=== PATIENT | male | born 1995 | race Caucasian/White ===

== ENCOUNTER 2017-02-06 16:10 | Emergency (ER) | payer BC ==
[2017-02-06] MEDS ORDERED: Ibuprofen TAB* 600 MG PO ONE (17:58)
--- NOTE | 2017-02-06 18:06 | UC ---
Throat Pain/Nasal Fabio HPI - HPI Summary HPI Summary: patient has had one day of sore throat and fever. he is very znxious, states that it happens alot. denies need for any medication or treatment it goes away on its own. - History of Current Complaint Chief Complaint: UCGeneralIllness Stated Complaint: ST/FEVER/CORCKER Time Seen by Provider: 02/06/17 17:45 Hx Obtained From: Patient Onset/Duration: Sudden Onset, Lasting Days Severity: Moderate Pain Scale Used: 0-10 Numeric Cough: Nonproductive Associated Signs & Symptoms: Positive: Dysphagia, Fever - Allergies/Home Medications Allergies/Adverse Reactions: Allergies Allergy/AdvReac Type Severity Reaction Status Date / Time pollen Allergy Eyes Uncoded 02/06/17 17:45 Itchy/Swollen/Red/Watery Home Medications: Home Medications Ibuprofen TAB* [Advil TAB*] 400 mg PO Q6H PRN 02/06/17 [History Confirmed ] buPROPion SR TAB* [Wellbutrin SR TAB*] 100 mg PO DAILY 02/06/17 [History Confirmed 02/06/17] PMH/Surg Hx/FS Hx/Imm Hx Previously Healthy: Yes - Surgical History Surgical History: Yes Surgery Procedure, Year, and Place: left wrist surgery 01/2013, adenoids as a child - Family History Known Family History: Negative: Cardiac Disease, Hypertension - Social History Alcohol Use: Weekly Substance Use Type: None Smoking Status (MU): Never Smoked Tobacco Review of Systems Constitutional: Fever Skin: Negative Eyes: Negative ENT: Sore Throat Respiratory: Cough Cardiovascular: Negative Gastrointestinal: Negative Genitourinary: Negative Motor: Negative Neurovascular: Negative Musculoskeletal: Negative Neurological: Negative Psychological: Anxious All Other Systems Reviewed And Are Negative: Yes Physical Exam Triage Information Reviewed: Yes Appearance: Well-Nourished, Ill-Appearing, Pain Distress Vital Signs: Initial Vital Signs Temp 103.9 F 02/06/17 17:47 Pulse 119 02/06/17 17:47 Resp 24 02/06/17 17:47 BP 115/70 02/06/17 17:47 Pulse Ox 100 02/06/17 17:47 Vital Signs Reviewed: Yes Eye Exam: Normal Eyes: Positive: Conjunctiva Clear ENT Exam: Normal ENT: Positive: Pharyngeal erythema, TM red, Tonsillar swelling, Tonsillar exudate Dental Exam: Normal Neck exam: Normal Neck: Positive: Supple, Nontender, Enlarged Nodes @ - bilateral cervical Respiratory Exam: Normal Respiratory: Positive: Chest non-tender, Lungs clear, Normal breath sounds Cardiovascular Exam: Normal Cardiovascular: Positive: No Murmur, Pulses Normal, Tachycardia Abdominal Exam: Normal Abdomen Description: Positive: Nontender, No Organomegaly, Soft Bowel Sounds: Positive: Present Musculoskeletal Exam: Normal Musculoskeletal: Positive: Strength Intact, ROM Intact, No Edema Neurological Exam: Normal Neurological: Positive: Alert, Muscle Tone Normal Psychological Exam: Normal Skin Exam: Normal Throat Pain/Nasal Course/Dx - Course Course Of Treatment: hx obtained, exam performed, meds reviewed, rapid strep obtained and is negative, treated based on clincal presentation. - Differential Dx/Diagnosis Differential Diagnosis/HQI/PQRI: Influenza, Laryngitis, Otitis Media, Pharyngitis, Sinusitis, Tonsillitis, URI Provider Diagnoses: tonsillitis. fever. anxiety Discharge - Discharge Plan Condition: Stable Disposition: HOME Patient Education Materials: Tonsillitis (ED) Additional Instructions: take the medication as provided increase fluid intake and get plenty of rest. continue to use ibuprofen 400 - 600 mg every 4-6 hours.
[2017-02-06 18:15] VITALS: BP 115/70
== END 2017-02-06 18:41 | disposition home or self-care (01) ==
LOC: UCCORT 16:10
DX: J03.90 Acute tonsillitis, unspecified (principal); R50.9 Fever, unspecified; F41.9 Anxiety disorder, unspecified
CPT/HCPCS: 87651; 99202; A9270-GY; G0463